=== PATIENT | female | born 1975 | race African-American/Black ===

== ENCOUNTER 2019-12-06 14:18 | Emergency (ER) | payer OTHER ==
[2019-12-06 14:23] VITALS: BP 144/86; PULSE 111; TEMP 98; BMI 36.7
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
== END 2019-12-06 19:16 | disposition home or self-care (01) ==
LOC: JERFT 14:18
DX: S02.2XXA Fracture of nasal bones, initial encounter for closed fracture (principal); G44.309 Post-traumatic headache, unspecified, not intractable; F07.81 Postconcussional syndrome; Y04.2XXA Assault by strike against or bumped into by another person, initial encounter; Y93.89 Activity, other specified; Y92.89 Other specified places as the place of occurrence of the external cause; Y99.8 Other external cause status; Y07.03 Male partner, perpetrator of maltreatment and neglect
CPT/HCPCS: 70450-TC; 70486-TC; 99281-25